=== PATIENT | female | born 1985 | race Caucasian/White ===

== ENCOUNTER 2022-03-21 11:15 | Emergency (ER) | payer OTHER ==
[~2022-03-21] VITALS: Ht 165.1 cm; Wt 52.2 kg
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
[2022-03-21 11:31] VITALS: BP 143/93
--- NOTE | 2022-03-21 11:40 | NUR ---
SWITCH BOX INSTALLER AT BEDSIDE FOR XRAY.
== END 2022-03-21 11:56 | disposition home or self-care (01) ==
LOC: ER 11:16
DX: S53.401A Unspecified sprain of right elbow, initial encounter (principal); S00.33XA Contusion of nose, initial encounter; F32.A Depression, unspecified; F41.9 Anxiety disorder, unspecified; Y08.89XA Assault by other specified means, initial encounter; Y93.89 Activity, other specified; Y92.89 Other specified places as the place of occurrence of the external cause; Y99.8 Other external cause status
CPT/HCPCS: 73080-TC